=== PATIENT | female | born 1985 | race Caucasian/White ===

== ENCOUNTER 2025-02-24 18:13 | Emergency (ER) | payer OTHER, SELFPAY ==
[2025-02-24 18:16] VITALS: BP 179/107
[2025-02-24 19:35] VITALS: BMI 24.9
[2025-02-24] MEDS: VALIUM INJECTION 5 MG IM (20:07)
[2025-02-24] MEDS: TORADOL 30 MG IM (20:07)
--- NOTE | 2025-02-24 20:12 | ED.MUSCINJ ---
Addendum entered and electronically signed by Hailey Bhatia DO 02/25/25 13:06:
Care patient called requesting prescription for Medrol Dosepak be sent to [facility] pharmacy in [place]. Message was left for pharmacy staff
Original Note:
HPI-Injury
General
Chief Complaint: Musculo-Skeletal Complaint
Time Seen by Provider: 02/24/25 19:46
Nursing documentation reviewed up to this point in time: agreed with
History of Present Illness-Injury
Initial Injury comments:
39-year-old female presents to the ER for evaluation of severe pain in her right neck radiating down her right arm over the past 2 days. Patient states that she felt well 2 nights ago. She went to bed and awake and laying on her stomach which was
a very unusual position for her. She reported stiffness in her neck along with neck pain. 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 She started to notice increasing tension along the
right side of her upper back and neck. She reports pain radiating down her arm. She reports that it seems to be mainly involve digits 2 and 3 of the right hand. She has been using Tylenol and ibuprofen with minimal change in her symptoms. Her
last dose of ibuprofen was this morning prior to going to urgent care. She was seen there and was initiated on methocarbamol. She took 2 doses of this medication with minimal improvement in her symptoms prompting visit to the ER tonight. She
denies any previous cervical spine instrumentation. She denies any fevers or chills. She denies weakness in the hand but has pain with moving her right arm. She denies any recent MVC or chiropractic manipulation. She denies headache. She is
right-handed.
Review of Systems
Review of Systems
Allergies reviewed?: Yes
Phy Exam
Physical Exam
Physical Exam:
Patient is awake, alert, appears uncomfortable but in no acute distress, preferring to keep her neck straight, no midline pain on palpation of cervical spine, significant paraspinal hypertonicity noted throughout right lower paracervical musculature
into the right trapezius which is exquisitely tender on palpation, no overlying skin change, no crepitus, paraspinal hypertonicity persist throughout right parathoracic musculature, no overlying skin change seen to bilateral upper extremities, equal
hand grasp, and intact sensation to light touch bilateral upper extremities although patient reports diminished sensation to the right hand, no weakness with interosseous motor function bilateral upper extremities, brisk cap refill present to
bilateral hands, bilateral lower extremities appear normal without edema, GCS is 15.
Injury Course
Orders/Labs/Results
Orders:
Orders
02/24/25 19:55
Ketorolac [Toradol] 30 mg IM NOW STA
diazePAM [Valium Injection] 5 mg IM NOW STA
02/24/25 20:04
Prednisone [Deltasone] 50 mg PO NOW STA
02/25/25 08:00
Prednisone [Deltasone] 50 mg PO DAILY
MDM/Problems Addressed
Differential Diagnosis Includes:
Differential diagnosis to consider but not limited to muscle spasm, strain, sprain, cervical radiculopathy along with other etiologies considered
Chronic conditions affecting care:
Anxiety, depression
*Pulse Oximetry
SaO2: 97
Oxygen Mode of Delivery: Room air
Patient hypoxic: no
*Critical Care Note
Total Time (30-74mins, 75-104mins- exclusive of procedures): Not Applicable
Update Note
Update Note:
I discussed with patient low utility of x-rays given absence of midline tenderness on palpation. I discussed with her symptomatic treatment here in the emergency department including initiation of steroids, dose of Toradol and Valium for additional
muscle spasm relief. I discussed with patient anticipated normal healing course and benefit of follow-up with primary care physician to obtain referral for physical therapy and reevaluation. Patient agrees with plan at current. Will treat
symptomatically and plan for discharge.
2044: Patient feeling improvement in the twitching and spasm along with discomfort in her right upper extremity after medications administered. I reviewed full discharge instructions with the patient including medication usage and prescription
Solu-Medrol. She feels comfortable with plan for discharge. She has no questions at the current time and expressed understanding of return precautions
ED Attending Note
-
Portions of this chart may have been created with voice recognition software.� Occasional wrong word or��sound alike� substitutions may have occurred due to the inherent limitations of voice recognition software.
Discharge Plan
Departure
Patient Disposition: Home (Routine Discharge)
Date of Disposition: 02/24/25
Time of Disposition: 20:48
Patient with high blood pressure during this ER visit?: Yes
Discharge Problem:
Cervical radiculopathy
Instructions: Radiculopathy of the neck and back (including sciatica) (DC), BLOOD PRESSURE
Prescriptions:
New
methylprednisolone [Medrol (Tito)] 4 mg tablets,dose pack
See Rx Instructions .ROUTE .COMPLEX Qty: 21 0RF
Rx Instructions:
for 6 days
Activity Restrictions/Additional Instructions:
Encourage fluids. Please follow-up with your primary care physician this week for reevaluation and further care, along with referral to physical therapy. Please complete course of steroids (methylprednisolone) as prescribed. Continue using muscle
relaxer as prescribed by urgent care. You may add extra strength Tylenol as available [id number] for additional pain relief. Continue using lidocaine patches alternating with heat and ice for additional pain relief. Return to the ER for any
concerns.
Interventions
Interventions:
*Risk Screen - Suicide Last Done: 02/24/25 19:37
*General Assessment Last Done: 02/24/25 18:16
*Neglect/Abuse Screening Last Done: 02/24/25 19:37
*ED COVID-19 Vaccine History Last Done: 02/24/25 19:37
*ED Influenza Vaccine History Last Done: 02/24/25 19:37
[facility] Risk Assessment Tool Last Done: 02/24/25 19:36
ED-Musculoskeletal Assessment Last Done: 02/24/25 19:48
Discharge Date and Time
Print Language: LITHUANIAN
[2025-02-24] MEDS: DELTASONE 50 MG PO (20:23)
[2025-02-24 21:15] VITALS: BP 128/76
== END 2025-02-24 21:19 | disposition home or self-care (01) ==
LOC: EMR 18:13
PROVIDERS: EMERGENCY PHYSICIAN Emergency Medicine; FAMILY PHYSICIAN Nurse Practitioner Adult Health
DX: M54.12 Radiculopathy, cervical region (principal)
CPT/HCPCS: 99284; 96372 ×2

== ENCOUNTER 2025-02-27 14:17 | Emergency (ER) | payer OTHER, SELFPAY ==
[2025-02-27 14:24] VITALS: BP 163/88
[2025-02-27] MEDS: MORPHINE SULFATE 4 MG IV (16:58)
[2025-02-27] MEDS: TORADOL 15 MG IV (16:58)
[2025-02-27] MEDS: TYLENOL 650 MG PO (16:58)
--- NOTE | 2025-02-27 17:33 | ED.GENMED ---
History of Present Illness
General
Chief Complaint: Musculo-Skeletal Complaint
Source: patient
Exam Limitations: none
Time Seen by Provider: 02/27/25 15:51
Nursing documentation reviewed up to this point in time: agreed with
History of Present Illness
History of Present Illness:
Patient is a 39-year-old right hand dominant female with past medical history of depression, anxiety, ADHD, who presents to the emergency department for evaluation of right-sided neck pain that radiates down her right arm and is associate with
numbness and tingling of the right upper extremity. Patient reports that her symptoms started 6 days ago. Patient went to urgent care and was prescribed methocarbamol, a muscle relaxant. Patient reports that she took that but without improvement
in her symptoms. Therefore, she came to the emergency department 3 days ago. At that time, the patient was diagnosed with a cervical radiculopathy and started on a Medrol pack in addition to Tylenol and methocarbamol. Patient reports she was also
using ice and heat to the area and also using lidocaine patches to the area. Patient reports that she has not noted any improvement in her symptoms. She reports that the pain has gotten more severe and is to the point where she does not want to
move her arm at all because it causes severe pain. Patient denies any known injury or trauma. Patient reports that the numbness and tingling of the extremity is unchanged from previous. Patient reports that the pain has started to radiate into
the right side of her chest. Patient reports some shortness of breath but reports that this is only present when the pain is severe and she believes it is due to the pain. Patient denies abdominal pain, nausea, vomiting, change in her bowel
habits. Patient denies any recent lower extremity edema. Patient denies any exogenous hormone use, denies any recent prolonged periods of immobility, denies any personal or family history of VTE.
Past History
Past History
ED Past Medical History: Psychiatric (depression, anxiety, ADHD)
ED Past Surgical History: Other ([place] tooth extraction)
Social History
Tobacco: Non-smoker
Alcohol: Occasional
Drug: None
Review of Systems
Review of Systems
All Other Systems: Not applicable
Constitutional: Reports no symptoms
EENT: Reports no symptoms
Respiratory: Reports trouble breathing
Cardiac: Reports chest pain
ABD/GI: Reports no symptoms
: Reports no symptoms
Musculoskeletal: Reports other (right neck pain, right arm pain)
Skin: Reports no symptoms
Neurological: Reports no symptoms
Endocrine: Reports other (numbness/tingling of the RUE)
Hematologic/Lymphatic: Reports no symptoms
Psychiatric: Reports no symptoms
Phy Exam
General Physical Exam
General Presentation: well appearing, no apparent distress and other (intermittently tearful 2/2 pain)
General Skin: warm and dry
General Habitus: normal
General Mental: alert
General Hydration: appears well hydrated
ENT Exam
ENT Exam: EOMI, pharynx normal, neck supple and normocephalic
Eye Exam
Eye Exam: PERRL, cornea clear and conjunctiva normal
Cardiovascular Exam
Cardiovascular Exam: regular rate/rhythm, no edema, no murmur and normal peripheral pulses
Pulmonary Exam
Pulmonary Exam: lungs clear, no respiratory distress, no rales, no crackles, no rhonchi, no stridor, no wheezing and no cough
Gastrointestinal Exam
Gastrointestinal Exam: normal bowel sounds, non tender, soft, no organomegaly, no pulsatile mass and non distended
Neurological Exam
Neurological Exam: alert, oriented x3, no motor deficits and speech normal
Musculoskeletal Exam
Musculoskeletal Exam: neuro vasc intact and other ((+) right trapezius hypertonicity with mild ttp, FROM of the neck, no swelling, skin changes to RUE, no ttp, decreased ROM 2/2 pain, nml sales representative sales manager strength, 2+ radial pulse, sensation intact to light
touch to all digits)
Skin Exam
Skin Exam: normal color, warm/dry, no rash and no petechia
Psychiatric Exam
Psychiatric Exam: normal mood/affect
Course
Orders/Labs/Results
Orders:
Orders
02/27/25 14:27
Electrocardiogram (*1) Urgent
Reason for Study: Chest Pain
EKG- Treatment ONCE
02/27/25 16:17
CT Cervical Spine W/o Iv Contr Urgent
Comment:
Reason For Exam: severe neck pain with radiculopathy
Ketorolac [Toradol] 15 mg IV NOW STA
Morphine Sulfate 4 mg IV NOW STA
02/27/25 16:18
Acetaminophen [Tylenol] 650 mg PO NOW STA
Vital Signs
Initial and Last Documented VS:
Initial Vital Signs
Temp Pulse Resp BP Pulse Ox
98 F 78 16 163/88 100
02/27/25 14:24 02/27/25 14:24 02/27/25 14:24 02/27/25 14:24 02/27/25 14:24
Last Documented Vital Signs
Temp Pulse Resp BP Pulse Ox
98.2 F 59 16 128/90 99
02/27/25 17:54 02/27/25 17:54 02/27/25 17:54 02/27/25 17:54 02/27/25 17:54
*Pulse Oximetry
SaO2: 100
Oxygen Mode of Delivery: Room air
Patient hypoxic: no
*Critical Care Note
Total Time (30-74mins, 75-104mins- exclusive of procedures): Not Applicable
Update Note
Update Note:
39-year-old female seen in this emergency department 3 days ago and diagnosed with cervical radiculopathy presents to the emergency department for persistent right-sided neck pain which radiates to the right upper extremity and is associated with
numbness and tingling. Patient reports that the pain now seems to be moving to the right side of her chest and is also causing her to feel dyspneic at times due to its severity. Patient denies any other new symptoms today. Patient denies any
fevers or neck stiffness. On arrival, patient is moderately hypertensive, afebrile. On examination, patient is well appearing, she has full range of motion of the neck with reproducible tenderness to the right trapezius, she has decreased range of
motion of the right upper extremity secondary to pain, she is neurovascularly intact. Patient was sent to the emergency department by her PCP today given the severity of her symptoms. Patient had an EKG performed while she was in the waiting room
which demonstrates no acute ischemic changes, no evidence of dysrhythmia. Patient did not have imaging of her neck or back during her last ED visit, she reports that her PCP specifically sent her in for imaging and is requesting the same today.
Will check a CT of the cervical spine without IV contrast. Will provide the patient with analgesia with morphine and ketorolac and reassess.
CT demonstrates some mild degenerative changes which could be contributing to her symptoms today. No acute fracture or subluxation noted. On reevaluation, the patient reports significant improvement in her pain, she is moving her right upper
extremity more freely. She feels ready for discharge to home. I feel the patient is safe for discharge to home with instructions on continued supportive care measures. She was encouraged to continue to use Tylenol along with NSAID along with
supportive care measures including stretching, ice, heat. However, I will provide the patient with a prescription for a few oxycodone to take if needed for severe pain. Patient already has follow-up arranged with a spine doctor in 12 days, she was
encouraged to keep this appointment. Patient was also educated on return precautions, she expressed understanding of the plan and agreed.
ED Attending Note
-
Portions of this chart may have been created with voice recognition software.� Occasional wrong word or��sound alike� substitutions may have occurred due to the inherent limitations of voice recognition software.
Discharge Plan
Departure
Patient Disposition: Home (Routine Discharge)
Date of Disposition: 02/27/25
Time of Disposition: 17:42
Patient with high blood pressure during this ER visit?: Yes
Condition: Good
Covid-19: Not Applicable
Discharge Problem:
Cervical radiculopathy
Instructions: Radiculopathy of the neck and back (including sciatica) (DC)
Prescriptions:
New
oxycodone 5 mg tablet
5 mg PO TID PRN (Reason: Pain) 3 Days Qty: 5 0RF
No Action
methylprednisolone [Medrol (Tito)] 4 mg tablets,dose pack
See Rx Instructions .ROUTE .COMPLEX Qty: 21 0RF
Rx Instructions:
for 6 days
Referrals:
Yarely Tavares CRNP [Family Provider, General]
Activity Restrictions/Additional Instructions:
You were seen in the emergency department for evaluation of pain to the right side of your neck radiating down the right arm associated with numbness and tingling. We suspect that your symptoms are due to cervical radiculopathy as previously
diagnosed. You had a CT scan of your cervical spine which demonstrates some degenerative changes which could be contributing to your symptoms today. Your EKG shows no signs of a heart attack or dangerous heart rhythm. You felt better after
receiving medication and we feel it is safe for you to be discharged home. We recommend that you continue to take the medications that were previously prescribed. You may also take ibuprofen 600 mg every 6 hours for pain and inflammation. You may
take the oxycodone that was prescribed if needed for severe pain. Do not take this with your muscle relaxant. Do not drive or operate heavy machinery after taking this medication as it may make you sleepy. Please return to the emergency
department if you develop increasing chest pain, shortness of breath or difficulty breathing, fever greater than 100.4 �F, if you pass out or feel you are going to pass out, or for any other worsening or concerning symptoms.
Interventions
Interventions:
*Risk Screen - Suicide Last Done: 02/27/25 14:26
*Neglect/Abuse Screening Last Done: 02/27/25 14:26
*Nursing Disposition Last Done: 02/27/25 18:26
ED-Musculoskeletal Assessment Last Done: 02/27/25 17:55
Discharge Date and Time
Discharge Date/Time: 02/27/25 18:29
Print Language: CAMBODIAN
[2025-02-27 17:54] VITALS: BP 128/90
== END 2025-02-27 18:29 | disposition home or self-care (01) ==
LOC: EMR 14:17
PROVIDERS: EMERGENCY PHYSICIAN Emergency Medicine; FAMILY PHYSICIAN Nurse Practitioner Adult Health
DX: M47.22 Other spondylosis with radiculopathy, cervical region (principal); F41.8 Other specified anxiety disorders; F32.A Depression, unspecified; F90.9 Attention-deficit hyperactivity disorder, unspecified type
CPT/HCPCS: 99284; 96374; 96375; 72125; 93005